=== PATIENT | female | born 1970 | race Caucasian/White ===

== ENCOUNTER 2022-12-10 08:57 | Observation (INO) | payer MEDICAID, SELFPAY ==
[2022-12-10] VITALS (7 sets, daily range): BP systolic 101–148; BP diastolic 65–87; PULSE 85–98; RESP 14–18; TEMP 36.3–36.8; O2SAT 95–100; BMI 21.2; BMI 21.9
--- NOTE | 2022-12-10 09:32 | EKG12_ITS ---
Test Reason : Blood Pressure : / mmHG Vent. Rate : 087 BPM Atrial Rate : 087 BPM P-R Int : 148 ms QRS Dur : 076 ms QT Int : 368 ms P-R-T Axes : 075 057 050 degrees QTc Int : 442 ms Normal sinus rhythm Normal ECG Confirmed by CHARITY THOMAS, ALICE ([id number]), communications editor GISELL CHURCH ([id number]) on 12/13/2022 11:31:04 AM Referred By: Confirmed By:JUDSON NASH MD
[2022-12-10 09:46] LABS: Absolute Lymphocyte Count 3.31 X10^3/uL (0.83-4.51); Basophil# 0.05 X10^3/uL; Basophil% 0.6 % (0-1); Eosinophil# 0.12 X10^3/uL; Eosinophils% 1.5 % (0-5); Hematocrit 39.8 % (37-47); Hemoglobin 13.5 g/dL (12.0-15.0); Lymphocyte # 3.31 X10^3/ul (0.83-4.51); Lymphocyte % 40.2 % (19-41); Mean Corp Hgb Conc 33.9 g/dL (32-36); Mean Corpuscular Hgb 31.8 pg (27.0-32.0); Mean Corpuscular Volume 93.6 fL (81-99); Mean Platelet Vol. 8.8 fl (6.2-12.0); Monocyte# 0.78 X10^3/uL; Monocyte% 9.5 % (0-10); NRBC Flagged by Analyzer 0 % (0-5); Neutrophil # 3.96 X10^3/uL (2.7-7.7); Neutrophil % 48.1 % (47-70); Platelet Count 408 K/mm3 (150-450); RBC Distribution Width SD 44.6 fl (35.1-43.9); Red Blood Count 4.25 M/mm3 (4.2-5.4); White Blood Count 8.2 K/mm3 (4.4-11.0)
--- NOTE | 2022-12-10 09:46 | EX.ED.SAOD ---
HPI History of Present Illness Chief Complaint: Substance Abuse Narrative Narrative: Patient is a 52-year-old female with history of alcohol abuse, polysubstance abuse and eluding cocaine and recently methamphetamines presenting for detox. Patient states she has been drinking heavily off and on for the past few months. She last had a drink around 6 or 9 PM last night. She is also been using cocaine heavily lately. She states she used cocaine all night last night. She does smoke cigarettes. She states she was methamphetamine to the first time yesterday. Patient states that she is regularly on Klonopin as well. She states overall she is feeling weak, short of breath, aching muscles, nausea, headaches, shaky and anxious. She she is never felt this bad. She notes she has had a cough has been intermittently productive since July. Patient has no other complaints at this time. [facility] Medical History Alcohol abuse Degenerative disc disease Fibromyalgia Home Medications budesonide-formoterol HFA 80 mcg-4.5 mcg/actuation aerosol inhaler (Symbicort) 2 puff inhalation DAILY 07/20/17 [History Last Taken 07/27/17 05:00] clonazepam 0.5 mg tablet (Klonopin) 0.5 mg PO TID 07/20/17 [History Last Taken 07/27/17 05:00] docusate sodium 100 mg capsule (DOK) 100 mg PO PRN PRN Constipation 07/20/17 [History Last Taken Unknown] metoprolol tartrate 25 mg tablet 12.5 mg PO DAILY PRN tachycardia 07/20/17 [History Last Taken Unknown] albuterol sulfate 90 mcg/actuation aerosol inhaler 4 puff inhalation Q4H PRN PRN breathing 12/10/22 [History Last Taken Unknown] cyclobenzaprine 5 mg tablet 5 mg PO QHS 12/10/22 [History Last Taken Unknown] polyethylene glycol 400 1 % eye drops (Visine Dry Eye Relief) 2 drp EACH EYE Q4H PRN PRN Dry Eyes 12/10/22 [History Last Taken Unknown] Allergy/AdvReac Type Severity Reaction Status Date / Time No Known Allergies Allergy Verified 12/10/22 09:01 Social History (Reviewed 12/10/22 @ 09:[address] JENN Austin Smoking Status: Current every day smoker tobacco type: cigarettes ROS ROS ED Constitutional Constitutional ED: Reports chills; Denies fever(s) Eyes Eyes: Denies change in vision ENT ENT ED: Denies rhinorrhea or sore throat Cardiovascular Cardiovascular: Denies chest pain Respiratory/Chest Respiratory/Chest: Reports cough and dyspnea Gastrointestinal Gastrointestinal: Reports nausea; Denies abdominal pain or vomiting Musculoskeletal Musculoskeletal: Reports arthralgias and myalgias Integumentary Denies rash Neurologic Neurologic: Reports headache(s); Denies paresthesias Psychiatric Psychiatric: Reports anxiety Hematologic/Lymphatic Hematologic/Lymphatic: Denies easy bleeding or easy bruising EXAM Physical Exam Const Vital Signs: 12/10/22 08:58 12/10/22 10:46 12/10/22 10:46 Temperature 97.4 F L 97.4 F L Temperature Source Temporal Temporal Pulse Rate 98 85 Respiratory Rate 14 16 16 Blood Pressure 148/87 H 128/82 H Blood Pressure Mean 107 97 Pulse Ox 100 99 Oxygen Delivery Method Room Air Room Air Positive well nourished and well developed General Appearance ED: well developed and NAD; Negative for pallor HEENT Reports moist mucous membranes atraumatic Eyes PERRL and EOMs intact bilaterally Neck supple and no JVD Chest Wall inspection of chest normal and palpation of chest normal Resp normal respiratory effort and clear to auscultation bilaterally Cardio regular rate, regular rhythm and no murmurs GI soft to palpation and non-tender Extremity Extremity Narrative: 2+ DP pulses General Extremety ED: Negative for edema or tenderness General Extremity: Negative for edema Neuro oriented x3 Sensorium / Orientation: alert Motor Exam: Negative for general weakness Psych mental status grossly normal Mood & Affect: anxious Skin General Skin Exam: Negative for jaundice or pallor Rashes: no rashes MDM MDM MDM Narrative Medical decision making narrative: Patient is evaluated for request of alcohol detox. She does admit to cocaine use and recent amphetamine abuse. Patient is regularly on clonazepam as well. Currently she does not appear to be withdrawing. She is mildly hypertensive with normal heart rate. She has multiple other somatic complaints I suspect is more associate with polysubstance abuse. Work-up is obtained however which is largely negative. Urine tox is consistent with amphetamine, MDMA and cocaine. Alcohol is negative at this point. Patient admitted for inpatient detox. Case discussed with admitting physician. Patient agreeable plan of care. Patient agreed to the rules of our ramp program Lab Data Attestation: I reviewed the patient's lab results. Labs: Laboratory Results - last 24 hr 12/10/22 12/10/22 12/10/22 09:40 09:40 09:40 WBC 8.2 RBC 4.25 Hgb 13.5 Hct 39.8 MCV 93.6 MCH 31.8 MCHC 33.9 RDW Std Deviation 44.6 H RDW Coeff of Stacie 13.0 Plt Count 408 MPV 8.8 Immature Gran % (Auto) 0.100 Neut % (Auto) 48.1 Lymph % (Auto) 40.2 [place] % (Auto) 9.5 Eos % (Auto) 1.5 Baso % (Auto) 0.6 Absolute Neuts (auto) 4.0 Absolute Lymphs (auto) 3.31 Nucleated RBC % 0 Sodium 136 Potassium 3.4 L Chloride 108 H Carbon Dioxide 25.0 Anion Gap 3 L BUN 13 Creatinine 0.57 Estim Creat Clear Calc 86.02 Est GFR (MDRD) Af Amer 144 Est GFR (MDRD) Non-Af 119 BUN/Creatinine Ratio 23.0 H Glucose 110 H Calcium 9.4 Total Bilirubin 0.40 AST 17 ALT 24 Alkaline Phosphatase 75 Total Creatine Kinase Total Protein 7.3 Albumin 3.9 Globulin 3.4 Albumin/Globulin Ratio 1.1 Urine Color Urine Clarity Urine pH Ur Specific [place] Urine Protein Urine Glucose (UA) Urine Ketones Urine Occult Blood Urine Nitrite Urine Bilirubin Urine Urobilinogen Ur Leukocyte Esterase Urine RBC Urine WBC Ur Squamous Epith Cells Urine Bacteria Urine Mucus Urine Test Urine Opiates Screen Urine Methadone Screen Ur Barbiturates Screen Ur Phencyclidine Scrn Ur Amphetamines Screen MDMA (Ecstasy) Screen U Benzodiazepines Scrn Urine Cocaine Screen U Cannabinoids Screen Ur Drug Screen Comment Ethyl Alcohol < 3.0 12/10/22 12/10/22 12/10/22 09:40 10:45 10:45 WBC RBC Hgb Hct MCV MCH MCHC RDW Std Deviation RDW Coeff of Stacie Plt Count MPV Immature Gran % (Auto) Neut % (Auto) Lymph % (Auto) [place] % (Auto) Eos % (Auto) Baso % (Auto) Absolute Neuts (auto) Absolute Lymphs (auto) Nucleated RBC % Sodium Potassium Chloride Carbon Dioxide Anion Gap BUN Creatinine Estim Creat Clear Calc Est GFR (MDRD) Af Amer Est GFR (MDRD) Non-Af BUN/Creatinine Ratio Glucose Calcium Total Bilirubin AST ALT Alkaline Phosphatase Total Creatine Kinase 74 Total Protein Albumin Globulin Albumin/Globulin Ratio Urine Color Yellow Urine Clarity Sl. Cloudy Urine pH 6.0 Ur Specific [place] 1.010 Urine Protein Negative Urine Glucose (UA) Normal Urine Ketones Negative Urine Occult Blood Negative Urine Nitrite Negative Urine Bilirubin Negative Urine Urobilinogen Normal Ur Leukocyte Esterase Negative Urine RBC 0 SEEN Urine WBC 0 SEEN Ur Squamous Epith Cells 0-5 SEEN Urine Bacteria 0 SEEN Urine Mucus 0 SEEN Urine Test Urine Opiates Screen NEGATIVE Urine Methadone Screen NEGATIVE Ur Barbiturates Screen NEGATIVE Ur Phencyclidine Scrn NEGATIVE Ur Amphetamines Screen POSITIVE H MDMA (Ecstasy) Screen POSITIVE H U Benzodiazepines Scrn NEGATIVE Urine Cocaine Screen POSITIVE H U Cannabinoids Screen NEGATIVE Ur Drug Screen Comment Ethyl Alcohol 12/10/22 10:45 WBC RBC Hgb Hct MCV MCH MCHC RDW Std Deviation RDW Coeff of Stacie Plt Count MPV Immature Gran % (Auto) Neut % (Auto) Lymph % (Auto) [place] % (Auto) Eos % (Auto) Baso % (Auto) Absolute Neuts (auto) Absolute Lymphs (auto) Nucleated RBC % Sodium Potassium Chloride Carbon Dioxide Anion Gap BUN Creatinine Estim Creat Clear Calc Est GFR (MDRD) Af Amer Est GFR (MDRD) Non-Af BUN/Creatinine Ratio Glucose Calcium Total Bilirubin AST ALT Alkaline Phosphatase Total Creatine Kinase Total Protein Albumin Globulin Albumin/Globulin Ratio Urine Color Urine Clarity Urine pH Ur Specific [place] Urine Protein Urine Glucose (UA) Urine Ketones Urine Occult Blood Urine Nitrite Urine Bilirubin Urine Urobilinogen Ur Leukocyte Esterase Urine RBC Urine WBC Ur Squamous Epith Cells Urine Bacteria Urine Mucus Urine Test Negative Urine Opiates Screen Urine Methadone Screen Ur Barbiturates Screen Ur Phencyclidine Scrn Ur Amphetamines Screen MDMA (Ecstasy) Screen U Benzodiazepines Scrn Urine Cocaine Screen U Cannabinoids Screen Ur Drug Screen Comment Ethyl Alcohol Radiography Chest X-Ray - ED: 2 View, Read by ED Physician, Read by Radiologist and No Acute Disease Diagnostic Testing: Clinical Impression(s) from Imaging Studies Chest X-Ray 12/10/22 10:05 IMPRESSION: No radiographic evidence of acute cardiopulmonary disease. Electronically Signed: Sammie Nguyen MD at 10:26 EDT , Rhythm Strip Rhythm Strip: Sinus Rhythm Rate: 87 Ectopy: None EKG Initial EKG: Attestation: I personally reviewed and interpreted this EKG as follows: Comments: Normal sinus rhythm rate of 87 bpm Normal axis Normal intervals Normal Discharge Plan Dx/Rx/DC Orders Clinical Impression: Polysubstance abuse, Alcohol abuse with physiological dependence Disposition Disposition: Acute Care Hospital [facility] Discharge Date/Time: 12/10/22 12:07
[2022-12-10 10:01] LABS: ALB/GLOB Ratio 1.1 RATIO (0.9-2.4); AST(SGOT) 17 U/L (15-37); Alanine Aminotransfer ALT/SGPT 24 U/L (13-56); Albumin, Serum 3.9 g/dL (3.2-5.0); Alcohol, Blood (Medical)-Serum < 3.0 mg/dL; Alkaline Phosphatase 75 U/L (45-117); Anion Gap 3 (5-15); BUN 13 mg/dL (7-18); Calcium,Total 9.4 mg/dL (8.5-10.1); Chloride 108 mmol/L (98-107); Creatinine, Serum 0.57 mg/dL (0.55-1.02); EST Glomerular Filtration Rate 119 mL/min (>60); Est Glom Filt Rate - Afr Amer 144 mL/min (>60); Estimated Creatinine Clearance 86.02 ml/min; Globulin 3.4 g/dL (2.2-4.2); Glucose 110 mg/dL (74-106); Potassium 3.4 mmol/L (3.5-5.1); Protein, Total 7.3 g/dL (6.4-8.2); Sodium Level 136 mmol/L (136-145)
--- NOTE | 2022-12-10 10:05 | RAD_ITS ---
INDICATION: cough EXAMINATION/TECHNIQUE: X-RAY - XR Chest 2 Views COMPARISON: FINDINGS: LINES/DEVICES: None. LUNGS: No consolidation, edema or effusion. No pneumothorax. MEDIASTINUM AND CARDIOVASCULAR STRUCTURES: Cardiac silhouette not enlarged. Central airways and mediastinal contour are unremarkable. BONES AND SOFT TISSUES: Unremarkable. RAD/Chest PA and Lateral IMPRESSION: No radiographic evidence of acute cardiopulmonary disease. Electronically Signed: Sammie Nguyen MD at 10:26 EDT ,
[2022-12-10 10:19] LABS: CPK Total, Creatine Kinase 74 U/L (26-192)
[2022-12-10] MEDS: Ibuprofen 200 MG Tablet 400 MG PO (10:24)
[2022-12-10 10:53] LABS: Bacteria 0 SEEN /hpf (None Seen); Mucous, Urine 0 SEEN /hpf (<or=2+); Red Blood Cells-Urine 0 SEEN /hpf (0-5); White Blood Cells 0 SEEN /hpf (0-5)
[2022-12-10 10:55] LABS: Color, Urine Yellow (Yellow); Glucose, Dipstick Normal (Normal); Ketone-Dipstick Negative (Negative); Leukocyte Esterase-Dipstick Negative /ul (Negative); Nitrite-Dipstick Negative (Negative); Occult Blood-Urine Negative /ul (Negative); Protein-Dipstick Negative (Negative); Urine Bilirubin Dipstick Negative (Negative); Urine Clarity Sl. Cloudy (Clear); Urine Urobilinogen Normal (Normal)
[2022-12-10 11:01] LABS: Squamous Epithelial Cells - UA 0-5 SEEN /hpf (5-10)
[2022-12-10 11:13] LABS: Amphetamine Urine VISTA POSITIVE (<1000 ng/mL); Barbiturate Urine VISTA NEGATIVE (< 200 ng/mL); Benzodiazepine Urine VISTA NEGATIVE (< 200 ng/mL); Cocaine Urine VISTA POSITIVE (< 300 ng/mL); Ecstacy Urine VISTA POSITIVE (< 500 ng/mL); Methadone Urine VISTA NEGATIVE (< 300 ng/mL); PCP Urine VISTA NEGATIVE (< 25 ng/mL); THC Urine VISTA NEGATIVE (< 50 ng/mL); Vista UDS pH Range 6
[2022-12-10 11:43] LABS: Internal QC Validated? YES +Cl - CLEAR BKGD
[2022-12-10 11:44] LABS: Pregnancy, Urine Negative Negative
--- NOTE | 2022-12-10 12:03 | CM.ED ---
Social Work Note Referral Source: Case find Referral Reason: RAMP SW met with patient and introduced herself and role as [facility] Director Of Occupational Therapy. Patient seated on hospital bed and agreeable to speak with SW. SW inquired about patient's interest in detox as well as knowledge of RAMP. Patient reported wanting to detox from alcohol with last drink late last night. SW reviewed rules of RAMP including it being a voluntary program, all belongings being locked up including patient's phone and patient will meet with an addictions counselor to discuss after care/ discharge plan. Patient explained her son, Bubba, 16-year-old, will likely contact [facility] as well as patient's son Edi, daughter Monica and boss Radha. SW explained the unit RN is likely to provide some information to family but encouraged patient's children to discuss the updates as RNs will not continue to provide updates to several individuals. SW inquired about where patient's 16-year-old son will be staying. Patient reports Bubba likes with her older son Edi. Patient reports an understanding regarding family updates and inquired about being on the floor and having access to a makah book as she was just informed she is a member of an [employer]. SW explained all of patient's belongings are locked up and the patient will have her own room. SW to inquire about patient having access to her book but explained there are books and activities available on the floor. Patient reports no other questions at this time. SW contacted production shift supervisor to inquire about patient having access to her book as Jamiee is unavailable. Willie recommending SW contact Unit in class special education teacher. AMBERLY contacted [place] in class special education teacher Sol who declined patient having access to that book. SW updated patient explaining her book will be locked up with her other belongings but she will have access to other books and activities on the floor. Patient inquired about the reasoning, SW explained it is the floors rules to ensure safety. Patient reports understanding. AMBERLY contacted treatment navigator to provide update regarding patient being admitted and her request for a book was declined by in class special education teacher. Margie explained she would likely follow up with patient tomorrow and the hospital advocate will be in to provide patient with books regarding recovery. Plan: TINA JOLLY, MELINDA
[2022-12-10] MEDS: Phenobarbital 32.4 MG Tablet 97.2 MG PO ×3 (12:51→20:19)
[2022-12-10] MEDS: Dicyclomine 10 MG Capsule 20 MG PO ×2 (12:52→21:54)
[2022-12-10] MEDS: LORazepam 1 MG Tablet 2 MG PO ×2 (12:52→21:54)
[2022-12-10] MEDS: Ondansetron 8 MG Tablet PO (12:52)
[2022-12-10] MEDS: Gabapentin 300 MG Capsule PO (12:52)
[2022-12-10] MEDS: clonazePAM 0.5 MG Tablet PO ×2 (15:05→21:37)
--- NOTE | 2022-12-10 18:09 | HP.PCM.HOS_ITS ---
HPI - General General Date of Admission: 12/10/22 Date of Service: 12/10/22 Chief Complaint: Requesting services for alcohol detox HPI Narrative JO-ANN PADRON, is a 52 F who presents to the emergency room at [facility] requesting services for alcohol detox, patient is also using cocaine and methamphetamines. Patient states her last alcoholic drink was last night. Patient states that she is regularly on Klonopin for anxiety. Patient complains of malaise, generalized weakness, myalgias, nausea, and anxiety. Labs reveal a normal CBC, chemistry panel was remarkable for potassium of 3.4. Patient's toxicology screen was positive for amphetamines, ecstasy, and cocaine. Patient's ethanol call level was below 3. Patient will be admitted to [place] [id number] for alcohol detox, she will be seen in consultation by addiction social professionals, orders were entered using alcohol detox order set. [facility] Medical History Alcohol abuse Degenerative disc disease Fibromyalgia Home Medications budesonide-formoterol HFA 80 mcg-4.5 mcg/actuation aerosol inhaler (Symbicort) 2 puff inhalation DAILY 07/20/17 [History Last Taken 07/27/17 05:00] clonazepam 0.5 mg tablet (Klonopin) 0.5 mg PO TID 07/20/17 [History Last Taken 07/27/17 05:00] docusate sodium 100 mg capsule (DOK) 100 mg PO PRN PRN Constipation 07/20/17 [History Last Taken Unknown] metoprolol tartrate 25 mg tablet 12.5 mg PO DAILY PRN tachycardia 07/20/17 [History Last Taken Unknown] albuterol sulfate 90 mcg/actuation aerosol inhaler 4 puff inhalation Q4H PRN PRN breathing 12/10/22 [History Last Taken Unknown] cyclobenzaprine 5 mg tablet 5 mg PO QHS 12/10/22 [History Last Taken Unknown] polyethylene glycol 400 1 % eye drops (Visine Dry Eye Relief) 2 drp EACH EYE Q4H PRN PRN Dry Eyes 12/10/22 [History Last Taken Unknown] Allergy/AdvReac Type Severity Reaction Status Date / Time No Known Allergies Allergy Verified 12/10/22 09:01 Social History Smoking Status: Current every day smoker tobacco type: cigarettes ROS Constitutional Constitutional: Reports fatigue, malaise and weakness; Denies anorexia, change in weight, chills, fever(s) or night sweats Eyes Eyes: Denies blurry vision, change in vision, discharge from eye(s) or eye pain Cardiovascular Cardiovascular: Denies chest pain, claudication, dyspnea on exertion, edema, lightheadedness or palpitations Respiratory/Chest Respiratory/Chest: Denies cough, excessive phlegm production, hemoptysis, productive cough, shortness of breath at rest or shortness of breath with exertion Gastrointestinal Gastrointestinal: Denies abdominal pain, coffee ground emesis, constipation, diarrhea, dyspepsia, hematemesis, hematochezia, melena, nausea or vomiting Genitourinary Genitourinary: Denies dysuria, hematuria, urinary frequency, urinary hesitancy, urinary incontinence or urinary urgency Musculoskeletal Musculoskeletal: Denies back pain, joint pain, joint stiffness, joint swelling, myalgias or neck pain Neurologic Neurologic: Denies abnormal gait, abnormal speech, confusion, disequilibrium, dizziness, focal weakness, headache(s), loss of vision, numbness, other visual disturbances, paresthesias, syncope or tingling Psychiatric Psychiatric: Denies anxiety, cognitive impairment, depression, irritability, mood swings or suicidal ideation Endocrine Endocrinology: Denies change in body appearance, cold intolerance, excessive sweating, heat intolerance, polydipsia or polyuria Hematologic/Lymphatic Hematologic/Lymphatic: Denies none, anemia, easy bleeding, easy bruising or lymphadenopathy Allergic/Immunologic Allergic/Immunologic: Denies rhinitis, urticaria, eczemia or asthma Vital Signs Vital Signs Vital Signs: 12/10/22 08:58 12/10/22 10:46 12/10/22 10:46 Temperature 97.4 F L 97.4 F L Temperature Source Temporal Temporal Pulse Rate 98 85 Respiratory Rate 14 16 16 Respiratory Effort Respiratory Depth Respiratory Pattern Blood Pressure 148/87 H 128/82 H Blood Pressure Mean 107 97 Blood Pressure Source Blood Pressure Position Blood Pressure Location Pulse Ox 100 99 Oxygen Delivery Method Room Air Room Air 12/10/22 12:16 12/10/22 12:12 Temperature 98.0 F Temperature Source Temporal Pulse Rate 86 Respiratory Rate 17 Respiratory Effort Normal Non-Labored Respiratory Depth Normal Respiratory Pattern Normal Blood Pressure 137/75 H Blood Pressure Mean 95 Blood Pressure Source Monitor Blood Pressure Position Semi-Fowlers Blood Pressure Location Right Arm Pulse Ox 100 Oxygen Delivery Method Room Air Weight Weight: 49.169 kg Body Mass Index (BMI) 21.9 Physical Exam Const alert, oriented x3, no apparent distress and average body habitus General Appearance: cooperative, well kempt and well developed Orientation / Consciousness: awake, oriented to person, oriented to place and oriented to time HEENT normocephalic, head/scalp atraumatic, hearing grossly normal bilaterally and moist oral mucous membranes Eyes PERRL, EOMs intact bilaterally and conjunctivae normal Neck supple, no JVD, thyroid normal and no carotid bruits General: trachea midline Resp normal respiratory effort, no retractions, no use of accessory muscles and clear to auscultation bilaterally Auscultation: Negative for rales, rhonchi or wheezes Cardio regular rate, regular rhythm, S1 normal heart sound, S2 normal heart sound, no murmurs, no rub and no gallops GI normal to inspection, nondistended, normoactive bowel sounds, soft to palpation, non-tender and non-distended Extremity no clubbing, cyanosis or edema Skin no rashes or lesions noted General Skin Exam: no breakdown Neuro oriented x3, CN's II-XII intact bilaterally, moves all extremities, no focal motor deficits and no sensory deficits noted Sensorium / Orientation: awake, alert, oriented to person, oriented to place and oriented to time Speech: speech normal Psych affect normal Results Lab / Micro Data Result Diagrams: 12/10/22 09:40 12/10/22 09:40 Labs: Laboratory Results - last 24 hr 12/10/22 09:40: WBC 8.2, RBC 4.25, Hgb 13.5, Hct 39.8, MCV 93.6, MCH 31.8, MCHC 33.9, RDW Std Deviation 44.6 H, RDW Coeff of Stacie 13.0, Plt Count 408, MPV 8.8, Immature Gran % (Auto) 0.100, Neut % (Auto) 48.1, Lymph % (Auto) 40.2, [place] % (Auto) 9.5, Eos % (Auto) 1.5, Baso % (Auto) 0.6, Absolute Neuts (auto) 4.0, Absolute Lymphs (auto) 3.31, Nucleated RBC % 0 12/10/22 09:40: Sodium 136, Potassium 3.4 L, Chloride 108 H, Carbon Dioxide 25.0, Anion Gap 3 L, BUN 13, Creatinine 0.57, Estim Creat Clear Calc 86.02, Est GFR (MDRD) Af Amer 144, Est GFR (MDRD) Non-Af 119, BUN/Creatinine Ratio 23.0 H, Glucose 110 H, Calcium 9.4, Total Bilirubin 0.40, AST 17, ALT 24, Alkaline Phosphatase 75, Total Protein 7.3, Albumin 3.9, Globulin 3.4, Albumin/Globulin Ratio 1.1 12/10/22 09:40: Ethyl Alcohol < 3.0 12/10/22 09:40: Total Creatine Kinase 74 12/10/22 10:45: Urine Opiates Screen NEGATIVE, Urine Methadone Screen NEGATIVE, Ur Barbiturates Screen NEGATIVE, Ur Phencyclidine Scrn NEGATIVE, Ur Amphetamines Screen POSITIVE H, MDMA (Ecstasy) Screen POSITIVE H, U Benzodiazepines Scrn NEGATIVE, Urine Cocaine Screen POSITIVE H, U Cannabinoids Screen NEGATIVE, Ur Drug Screen Comment 12/10/22 10:45: Urine Color Yellow, Urine Clarity Sl. Cloudy, Urine pH 6.0, Ur Specific [place] 1.010, Urine Protein Negative, Urine Glucose (UA) Normal, Urine Ketones Negative, Urine Occult Blood Negative, Urine Nitrite Negative, Urine Bilirubin Negative, Urine Urobilinogen Normal, Ur Leukocyte Esterase Negative, Urine RBC 0 SEEN, Urine WBC 0 SEEN, Ur Squamous Epith Cells 0-5 SEEN, Urine Bacteria 0 SEEN, Urine Mucus 0 SEEN 12/10/22 10:45: Urine Test Negative Rhythm Strip Rhythm Strip: Sinus Rhythm Rate: 87 Ectopy: None Radiology Impression Chest X-Ray 12/10/22 10:05 IMPRESSION: No radiographic evidence of acute cardiopulmonary disease. Electronically Signed: Sammie Nguyen MD at 10:26 EDT , Assessment & Plan Assessment/Plan (1) Polysubstance abuse: (2) Alcohol abuse with physiological dependence: PLAN: Plan 1. Acute alcohol withdrawal-patient will be admitted to MedSurg 3, orders were using the alcohol detox order set, patient will be seen by addiction social professionals. #2 polysubstance abuse-complicates care, medical course, recovery, and prognosis #3 chronic anxiety-patient well remain on Klonopin #4 paroxysmal tachycardia-type unknown, patient uses metoprolol 12.5 mg daily as needed, this will be written for her during her hospitalization Total clinical time spent by myself addressing the patient's medical problems, reviewing all of her data, and collaborating with patient's care team: 55 m inutes Charges/Coding Visit Charges Inpatient E&M: 73702 Init Hosp L2
[2022-12-10] MEDS: Acetaminophen 325 MG Tablet 650 MG PO (20:26)
[2022-12-10] MEDS: Budesonide Respules 0.5 MG/2 ML AMPUL.NEB. INHALATION (20:34)
[2022-12-10] MEDS: Albuterol 2.5 MG/3 ML VIAL.NEB. INHALATION (20:34)
[2022-12-10] MEDS: cycloBENZAPRine HCl 5 MG TABLET PO (21:37)
[2022-12-11] VITALS (11 sets, daily range): BP systolic 100–116; BP diastolic 53–78; PULSE 68–98; RESP 16–19; TEMP 36.4–37; O2SAT 95–99
[2022-12-11] MEDS: Phenobarbital 32.4 MG Tablet 97.2 MG PO ×3 (00:26→08:26)
[2022-12-11] MEDS: 0.9% Saline Lock 10 ML Syringe IV (05:32)
[2022-12-11] MEDS: Albuterol 2.5 MG/3 ML VIAL.NEB. INHALATION ×2 (06:43→13:28)
[2022-12-11] MEDS: Budesonide Respules 0.5 MG/2 ML AMPUL.NEB. INHALATION (06:43)
[2022-12-11] MEDS: Thiamine Hydrochloride 100 MG Tablet PO (08:20)
[2022-12-11] MEDS: Folic Acid 1 MG Tablet PO (08:20)
--- NOTE | 2022-12-11 10:48 | PN.HOSP_ITS ---
Reason for Visit Reason for Visit: Diagnoses Alcohol dependence, uncomplicated (12/10/22) Other psychoactive substance abuse, uncomplicated (12/10/22) Subjective Subjective Patient was seen and examined today, she does not appear to be nervous or anxious, she is still sleepy, she is okay with decreasing her phenobarbital, she is worried about going into an inpatient program because she needs to go to court on Tuesday with her son is going to court Objective Data Objective Data Vital Signs: Vital Signs Temp Pulse Resp BP Pulse Ox O2 Del Method 98.6 F 78 18 116/70 99 Room Air 12/11/22 08:35 12/11/22 08:35 12/11/22 08:35 12/11/22 08:35 12/11/22 08:35 12/11/22 08:40 Oxygen Delivery Method Room Air Weight: 49.169 kg Body Mass Index (BMI) 21.9 Intake & Output: Intake and Output for Last 24 Hours 12/09/22 12/10/22 12/11/22 23:59 23:59 23:59 Intake Total 200 / 200 200 / 200 Balance 200 / 200 200 / 200 Lab / Micro Data Result Diagrams: 12/10/22 09:40 12/10/22 09:40 Labs: Laboratory Results - last 24 hr 12/10/22 10:45: Urine Opiates Screen NEGATIVE, Urine Methadone Screen NEGATIVE, Ur Barbiturates Screen NEGATIVE, Ur Phencyclidine Scrn NEGATIVE, Ur Amphetamines Screen POSITIVE H, MDMA (Ecstasy) Screen POSITIVE H, U Benzodiazepines Scrn NEGATIVE, Urine Cocaine Screen POSITIVE H, U Cannabinoids Screen NEGATIVE, Ur Drug Screen Comment 12/10/22 10:45: Urine Color Yellow, Urine Clarity Sl. Cloudy, Urine pH 6.0, Ur Specific [place] 1.010, Urine Protein Negative, Urine Glucose (UA) Normal, Urine Ketones Negative, Urine Occult Blood Negative, Urine Nitrite Negative, Urine Bilirubin Negative, Urine Urobilinogen Normal, Ur Leukocyte Esterase Negative, Urine RBC 0 SEEN, Urine WBC 0 SEEN, Ur Squamous Epith Cells 0-5 SEEN, Urine Bacteria 0 SEEN, Urine Mucus 0 SEEN 12/10/22 10:45: Urine Test Negative Rhythm Strip Rhythm Strip: Sinus Rhythm Rate: 87 Ectopy: None Physical Exam Const alert, oriented x3, no apparent distress and average body habitus General Appearance: cooperative, well kempt and well developed Orientation / Consciousness: awake, oriented to person, oriented to place and oriented to time HEENT normocephalic, head/scalp atraumatic and moist oral mucous membranes Eyes PERRL, EOMs intact bilaterally and conjunctivae normal Neck supple, no JVD, thyroid normal and no carotid bruits General: trachea midline Resp normal respiratory effort and clear to auscultation bilaterally Auscultation: Negative for rales, rhonchi or wheezes Cardio regular rate, regular rhythm, no murmurs, no rub and no gallops GI normal to inspection, nondistended, normoactive bowel sounds, soft to palpation, non-tender and non-distended Extremity no clubbing, cyanosis or edema Skin no rashes or lesions noted General Skin Exam: no breakdown Neuro oriented x3, CN's II-XII intact bilaterally, no focal motor deficits and no sensory deficits noted Neuro Narrative: Patient appears mildly somnolent Sensorium / Orientation: awake and alert Speech: speech normal Psych affect normal Assessment & Plan Assessment/Plan (1) Polysubstance abuse: (2) Alcohol abuse with physiological dependence: PLAN: Plan 1. Acute alcohol withdrawal-I have elected to reduce her phenobarb dosage at this time due to somnolence, patient will be reevaluated tomorrow #2 polysubstance abuse-complicates care, medical course, recovery, and prognosis #3 chronic anxiety-patient well remain on Klonopin #4 paroxysmal tachycardia-type unknown, patient uses metoprolol 12.5 mg daily as needed, this will be written for her during her hospitalization Total clinical time spent by myself addressing the patient's medical problems, reviewing all of her data, and collaborating with patient's care team: 26 minutes Charges/Coding Visit Charges Inpatient E&M: 12706 [facility] Hosp L1
[2022-12-11] MEDS: hydrOXYzine PAM 25 MG Capsule 50 MG PO (11:44)
[2022-12-11] MEDS: LORazepam 1 MG Tablet 2 MG PO ×2 (12:20→14:31)
[2022-12-11] MEDS: Gabapentin 300 MG Capsule PO (12:20)
[2022-12-11] MEDS: clonazePAM 0.5 MG Tablet PO (14:00)
[2022-12-11] MEDS: Phenobarbital 32.4 MG Tablet PO ×2 (14:00→22:13)
[2022-12-11] MEDS: Acetaminophen 325 MG Tablet 650 MG PO (14:31)
[2022-12-11] MEDS: Ibuprofen 600 MG Tablet PO (15:51)
[2022-12-11] MEDS: Methocarbamol 750 MG Tablet 1500 MG PO (15:52)
--- NOTE | 2022-12-11 16:20 | ADDICTION ---
Pt was met with for [facility] assessment, interview, and d/c planning. Pt reports a remarkable hx of relapse w/hx of 23 years sustained sobriety. Pt reports she has been unable to control or stop daily use of alcohol and cocaine. Pt reports feelings of hopelessness w/intense anxiety and sadness. Pt admits she is not safe to return home d/t isolation and risk of relapse. Pt reports desire to admit directly to residential tx at [facility], [place], or other residential facility. Pt was referred to [facility] and pt will likely benefit from full milieu of residential services. [facility] does not admit to residential on weekends. Will f/u w/Dipika at [facility] on Tuesday12/13/22 prior to pt discharge from [facility].
[2022-12-11] MEDS: cycloBENZAPRine HCl 5 MG TABLET PO (22:13)
[2022-12-12] VITALS (9 sets, daily range): BP systolic 114–123; BP diastolic 58–72; PULSE 72–92; RESP 16–20; TEMP 36.5–37; O2SAT 96–100
[2022-12-12] MEDS: clonazePAM 0.5 MG Tablet PO ×3 (05:47→21:40)
[2022-12-12] MEDS: Phenobarbital 32.4 MG Tablet PO ×3 (05:48→21:40)
[2022-12-12] MEDS: Budesonide Respules 0.5 MG/2 ML AMPUL.NEB. INHALATION ×2 (07:28→19:08)
[2022-12-12] MEDS: Albuterol 2.5 MG/3 ML VIAL.NEB. INHALATION ×3 (07:28→19:08)
[2022-12-12] MEDS: Thiamine Hydrochloride 100 MG Tablet PO (08:44)
[2022-12-12] MEDS: Folic Acid 1 MG Tablet PO (08:44)
[2022-12-12] MEDS: Acetaminophen 325 MG Tablet 650 MG PO (08:52)
[2022-12-12] MEDS: Docusate Sodium 100 MG Capsule PO (08:52)
[2022-12-12] MEDS: hydrOXYzine PAM 25 MG Capsule 50 MG PO ×2 (08:52→14:07)
--- NOTE | 2022-12-12 11:46 | PCM.PN.HOSP ---
Reason for Visit Reason for Visit: Diagnoses Alcohol dependence, uncomplicated (12/10/22) Other psychoactive substance abuse, uncomplicated (12/10/22) Subjective Subjective Patient was seen and examined today, she appears more alert, she does not appear anxious or nervous. She is concerned that she will be able to go to an inpatient rehab facility if she is taking Klonopin, I told her I was not absolutely sure of this and that she needed to discuss this with addiction services. Objective Data Objective Data Vital Signs: Vital Signs Temp Pulse Resp BP Pulse Ox O2 Del Method 97.7 F L 91 20 H 114/72 99 Room Air 12/12/22 08:56 12/12/22 08:56 12/12/22 08:56 12/12/22 08:56 12/12/22 08:56 12/12/22 09:07 Oxygen Delivery Method Room Air Weight: 49.169 kg Body Mass Index (BMI) 21.9 Intake & Output: Intake and Output for Last 24 Hours 12/10/22 12/11/22 12/12/22 23:59 23:59 23:59 Intake Total 200 / 200 950 / 1300 450 / 450 Balance 200 / 200 950 / 1300 450 / 450 Lab / Micro Data Result Diagrams: 12/10/22 09:40 12/10/22 09:40 Rhythm Strip Rhythm Strip: Sinus Rhythm Rate: 87 Ectopy: None Physical Exam Const alert, oriented x3, no apparent distress and average body habitus General Appearance: cooperative, well kempt and well developed Orientation / Consciousness: awake, oriented to person, oriented to place and oriented to time HEENT normocephalic, head/scalp atraumatic and moist oral mucous membranes Eyes PERRL, EOMs intact bilaterally and conjunctivae normal Neck supple, no JVD, thyroid normal and no carotid bruits General: trachea midline Resp normal respiratory effort, no retractions, no use of accessory muscles and clear to auscultation bilaterally Auscultation: Negative for rales, rhonchi or wheezes Cardio regular rate, regular rhythm, S1 normal heart sound, S2 normal heart sound, no murmurs, no rub and no gallops GI normal to inspection, nondistended, normoactive bowel sounds, soft to palpation, non-tender and non-distended Extremity no clubbing, cyanosis or edema Skin no rashes or lesions noted General Skin Exam: no breakdown Neuro oriented x3, CN's II-XII intact bilaterally, no focal motor deficits and no sensory deficits noted Sensorium / Orientation: awake, alert, oriented to person, oriented to place and oriented to time Speech: speech normal Psych affect normal Assessment & Plan Assessment/Plan (1) Polysubstance abuse: (2) Alcohol abuse with physiological dependence: PLAN: Plan 1. Acute alcohol withdrawal-patient does not seem to be symptomatic at this time, he will discuss discharge planning with addiction protective services social worker tomorrow. #2 polysubstance abuse-complicates care, medical course, recovery, and prognosis #3 chronic anxiety-patient well remain on Klonopin #4 paroxysmal tachycardia-type unknown, patient uses metoprolol 12.5 mg daily as needed, this will be written for her during her hospitalization Total clinical time spent by myself addressing the patient's medical problems, reviewing all of her data, and collaborating with patient's care team: 26 minutes Charges/Coding Visit Charges Inpatient E&M: 93579 Subs Hosp L1
[2022-12-12] MEDS: Glycerin/Hypromellose/PEG400 15 ml Bottle 1 DRP EACH EYE ×2 (12:30→14:03)
[2022-12-12] MEDS: Gabapentin 300 MG Capsule PO (12:36)
[2022-12-12] MEDS: Methocarbamol 750 MG Tablet 1500 MG PO (12:36)
[2022-12-12] MEDS: Dicyclomine 10 MG Capsule 20 MG PO (14:07)
[2022-12-12] MEDS: cycloBENZAPRine HCl 5 MG TABLET PO (21:40)
[2022-12-13 05:56] VITALS: BP 130/67; PULSE 72; RESP 16; TEMP 36.4; O2SAT 98
[2022-12-13] MEDS: Phenobarbital 32.4 MG Tablet PO (05:57)
[2022-12-13] MEDS: clonazePAM 0.5 MG Tablet PO (05:57)
[2022-12-13] MEDS: Glycerin/Hypromellose/PEG400 15 ml Bottle 1 DRP EACH EYE (05:58)
--- NOTE | 2022-12-13 06:02 | NURSING ---
pt was a little irritated this morning worrying about getting support after discharge, she says she lives in [place] and doesn't have a car. She says she can't do inpatient rehab because she is on Klonopin. She then said I almost wish I hadn't come.
[2022-12-13 07:15] VITALS: PULSE 83; RESP 18
[2022-12-13] MEDS: Albuterol 2.5 MG/3 ML VIAL.NEB. INHALATION (07:35)
[2022-12-13] MEDS: Budesonide Respules 0.5 MG/2 ML AMPUL.NEB. INHALATION (07:35)
[2022-12-13] MEDS: Folic Acid 1 MG Tablet PO (08:56)
[2022-12-13] MEDS: Thiamine Hydrochloride 100 MG Tablet PO (08:56)
[2022-12-13 08:57] VITALS: BP 134/86; PULSE 84; RESP 18; TEMP 36.6; O2SAT 100
[2022-12-13] MEDS: Gabapentin 300 MG Capsule PO (09:05)
[2022-12-13] MEDS: Ibuprofen 600 MG Tablet PO (09:06)
[2022-12-13] MEDS: Methocarbamol 750 MG Tablet 1500 MG PO (09:06)
[2022-12-13] MEDS: hydrOXYzine PAM 25 MG Capsule 50 MG PO (09:06)
--- NOTE | 2022-12-13 09:30 | NURSING ---
Pt extremely agitated, anxious. Being rude to staff and muttering things under her breath. Everyone is to blame but her. Prn's given. Pt asked for a copy of her tox screen. This RN informed her of the results but did not let her see the computer.
--- NOTE | 2022-12-13 16:47 | PCM.DC.SUM ---
Providers Date of Admission: 12/10/22 Date of Discharge: 12/13/22 Primary Care Physician: PRISCILA GRANDA Reason For Visit: SUBSTANCE ABUSE, ALCOHOL DEPENDENCY Diagnosis Discharge Diagnosis (1) Polysubstance abuse: Status: Acute Code(s): F19.10 - Other psychoactive substance abuse, uncomplicated (2) Alcohol abuse with physiological dependence: Status: Acute Code(s): F10.20 - Alcohol dependence, uncomplicated Medications at Discharge Home Medications budesonide-formoterol HFA 80 mcg-4.5 mcg/actuation aerosol inhaler (Symbicort) 2 puff inhalation DAILY 07/20/17 clonazepam 0.5 mg tablet (Klonopin) 0.5 mg PO TID 07/20/17 docusate sodium 100 mg capsule (DOK) 100 mg PO PRN PRN Constipation 07/20/17 metoprolol tartrate 25 mg tablet 12.5 mg PO DAILY PRN tachycardia 07/20/17 albuterol sulfate 90 mcg/actuation aerosol inhaler 4 puff inhalation Q4H PRN PRN breathing 12/10/22 cyclobenzaprine 5 mg tablet 5 mg PO QHS 12/10/22 polyethylene glycol 400 1 % eye drops (Visine Dry Eye Relief) 2 drp EACH EYE Q4H PRN PRN Dry Eyes 12/10/22 Hospital Course Operations None Procedures None Summary of Care Provided Minutes Spent on Discharge: 45 Hospital Course: Patient is a 52-year-old female with past medical history as outlined was admitted through the ED on 12/02/2022 for acute alcohol withdrawal. Patient had a history of using alcohol and also used cocaine and methamphetamines. Her last drink was 1 night before admission. He was also on Klonopin for anxiety. On admission urine tox was positive for amphetamines and ecstasy as well as cocaine and serum alcohol level was less than 3. She was admitted and managed for acute alcohol withdrawal. She was started on alcohol withdrawal protocol with phenobarbital. She tolerated 3-day detox process. Patient refused to be tapered off of Klonopin and says she had been on it for too many years and did not want to stop it. She had expressed a desire to go to inpatient rehab unit for help with detox from alcohol. However since she did not want to be taken off of clutter. She could not be accepted there. Plan was therefore to discharge her home on 12/13/2022. However patient left AGAINST MEDICAL ADVICE before she could be discharged. Patient was seen and examined prior to discharge. She had no active complaints. Review of systems otherwise negative. Labs and vitals reviewed. Home medication reviewed and reconciled. Physical Exam Const oriented x3 and no apparent distress General Appearance: cooperative, comfortable and well kempt HEENT normocephalic, head/scalp atraumatic and hearing grossly normal bilaterally Mouth: oral and palatal mucosa normal Eyes PERRL, EOMs intact bilaterally and conjunctivae normal Neck no lymphadenopathy and supple Resp normal respiratory effort, no retractions, no use of accessory muscles and clear to auscultation bilaterally Cardio regular rate, regular rhythm, S1 normal heart sound, S2 normal heart sound and no murmurs GI normal to inspection, nondistended, normoactive bowel sounds, soft to palpation, non-tender and non-distended Extremity normal to inspection, full ROM and no clubbing, cyanosis or edema Skin no rashes or lesions noted and no wounds Neuro oriented x3, CN's II-XII intact bilaterally, moves all extremities and no focal motor deficits Sensorium / Orientation: awake and alert Motor Exam: strength 5/5 throughout Psych affect normal Weight / BMI Weight Weight: 108 lb 6.4 oz Body Mass Index (BMI) 21.9 ABG / Lab / Microbiology Data Result Diagrams: 12/10/22 09:40 12/10/22 09:40 D/C Instructions Discharge Diet: Low fat / Low cholesterol Discharge Activity: Return to Normal Activity Weight Bearing Status: Weight bearing as tolerated Call your doctor if you observe: Fever of 101 or Higher, Shortness of breath, Dizziness, Swelling in the ankles and Chest pain Meaningful Use Info Meaningful Use Diagnoses (Choose all that apply): None applicable Discharge Plan Admission Admit Date/Time: 12/10/22 12:03 Primary Reason for Your Visit: acute alcohol withdrawal Attending Provider: Kaitlyn Mcdaniel Primary Care Provider: PRISCILA GRANDA Consulting Providers: Raciel Strong Discharge Orders/Prescriptions Prescriptions: Continued clonazepam [Klonopin] 0.5 MG tablet 0.5 mg PO TID docusate sodium [DOK] 100 MG capsule 100 mg PO PRN PRN (Reason: Constipation) metoprolol tartrate 25 MG tablet 12.5 mg PO DAILY PRN (Reason: tachycardia) budesonide-formoterol [Symbicort] 1 INHALER inhaler 2 puff inhalation DAILY cyclobenzaprine 5 mg tablet 5 mg PO QHS Label Comments: TAKE 1 TABLET BY MOUTH EVERYDAY AT BEDTIME albuterol sulfate 90 mcg/actuation HFA aerosol inhaler 4 puff INHALATION Q4H PRN PRN (Reason: breathing) Label Comments: INHALE 2 PUFFS EVERY 4 HOURS NEEDED FOR SHORTNESS OF BREATH Visine Dry Eye Relief 1 % drops 2 drp EACH EYE Q4H PRN PRN (Reason: Dry Eyes) Label Comments: Instill 2 drop into both eyes twice a day Referrals / Follow Up: PRISCILA GRANDA [Other] PRISCILA GRANDA [Other] Disposition Disposition (needs filled in before D/C Order can be placed): Against Medical Advice Charges/Coding Visit Charges Inpatient E&M: 64571 Disch Hosp >30min
== END 2022-12-13 13:00 | disposition left against medical advice (07) | DRG 770 ==
LOC: ED 09:42 → MS3 18:28
PROVIDERS: Admitting Provider Internal Medicine; Emergency Provider Emergency Medicine; Visit Provider Student in an Organized Health Care Education/Training Program
DX: F10.239 Alcohol dependence with withdrawal, unspecified (principal); F14.10 Cocaine abuse, uncomplicated; F15.10 Other stimulant abuse, uncomplicated; I47.9 Paroxysmal tachycardia, unspecified; F17.210 Nicotine dependence, cigarettes, uncomplicated; F41.9 Anxiety disorder, unspecified; Y90.0 Blood alcohol level of less than 20 mg/100 ml; Z79.899 Other long term (current) drug therapy; Z53.29 Procedure and treatment not carried out because of patient's decision for other reasons; M79.7 Fibromyalgia
CPT/HCPCS: 71046; 80053; 80307; 81001; 81025; 82077; 82550; 85025; 93005; 94640; 99221; 99284; 99406; A4216; G0378